=== PATIENT | female | born 1985 | race Caucasian/White ===

== ENCOUNTER → 2017-10-27 | Outpatient (CLI) | payer OTHER ==
[~2017-10-27] MED LIST: PREN0.01 PO
== END ==
LOC: HPND 08:20
PROVIDERS: ATTEND Obstetrics & Gynecology
DX: O09.811 Supervision of pregnancy resulting from assisted reproductive technology, first trimester (principal); O09.291 Supervision of pregnancy with other poor reproductive or obstetric history, first trimester; Z36.82 Encounter for antenatal screening for nuchal translucency
CPT/HCPCS: 36415; 76813

== ENCOUNTER → 2017-12-01 | Outpatient (CLI) | payer OTHER | LOC: HPND 08:13 | PROVIDERS: ATTEND Obstetrics & Gynecology | DX: O09.812 Supervision of pregnancy resulting from assisted reproductive technology, second trimester (principal); O36.5120 Maternal care for known or suspected placental insufficiency, second trimester, not applicable or unspecified | CPT/HCPCS: 76811; 76817 ==

== ENCOUNTER → 2017-12-29 | Outpatient (CLI) | payer OTHER | LOC: HPND 07:55 | PROVIDERS: ATTEND Obstetrics & Gynecology | DX: O36.5120 Maternal care for known or suspected placental insufficiency, second trimester, not applicable or unspecified (principal); O09.812 Supervision of pregnancy resulting from assisted reproductive technology, second trimester; O44.42 Low lying placenta NOS or without hemorrhage, second trimester | CPT/HCPCS: 76816; 76817; 76825; 76827; 93325 ==

== ENCOUNTER → 2018-01-28 | Outpatient (CLI) | payer OTHER | LOC: HPND 07:50 | PROVIDERS: ATTEND Obstetrics & Gynecology | DX: O09.812 Supervision of pregnancy resulting from assisted reproductive technology, second trimester (principal); O44.42 Low lying placenta NOS or without hemorrhage, second trimester; O36.5120 Maternal care for known or suspected placental insufficiency, second trimester, not applicable or unspecified | CPT/HCPCS: 76816; 76817 ==

== ENCOUNTER → 2018-02-28 | Outpatient (CLI) | payer OTHER | LOC: HPND 14:52 | PROVIDERS: ATTEND Obstetrics & Gynecology | DX: O35.8XX0 Maternal care for other (suspected) fetal abnormality and damage, not applicable or unspecified (principal); O36.5130 Maternal care for known or suspected placental insufficiency, third trimester, not applicable or unspecified; O09.813 Supervision of pregnancy resulting from assisted reproductive technology, third trimester | CPT/HCPCS: 76816 ==

== ENCOUNTER 2018-04-24 20:26 | Inpatient (IN) | payer OTHER ==
[~2018-04-24] VITALS: Ht 170.2 cm; Wt 98.0 kg
[2018-04-24] MEDS ORDERED: OXYTOCIN 30 UNITS/NS 500ML PREMIX IV PRN (21:30)
[2018-04-24] MEDS ORDERED: NS 1000 ML IV PRN (21:45)
[2018-04-24] MEDS ORDERED: ACETAMINOPHEN 325 MG TAB PO PRN (21:45)
[2018-04-24] MEDS ORDERED: MINERAL OIL 10 ML VIAL TOPICAL PRN (21:45)
[2018-04-24] MEDS ORDERED: ONDANSETRON HCL 4 MG/2 ML VIAL IV PUSH PRN (21:45)
[2018-04-24] MEDS ORDERED: CITRIC ACID-SODIUM CITRATE LIQ 30 ML UDC PO SCH (21:45)
[2018-04-24] MEDS ORDERED: LIDOCAINE HCL 1% 50 ML VIAL I-DERMAL PRN (21:45)
[2018-04-24] MEDS ORDERED: NS 500 ML BOLUS IV PRN (21:45)
[2018-04-24] MEDS ORDERED: LACTATED RINGER'S 1000 ML BOLUS IV PRN (21:45)
[2018-04-24] MEDS ORDERED: LIDOCAINE HCL 1% 50 ML VIAL INFIL PRN (21:45)
[2018-04-24] MEDS ORDERED: OXYTOCIN 30 UNITS 500ML PREMIX IV ONE (21:45)
[2018-04-24 22:01] LABS: AUTOMATED NEUTROPHIL # 7.1 TH/MM3 (1.8-7.7); BASOPHIL % 0.2 % (0.0-2.0); EOSINOPHIL % 0.2 % (0.0-4.0); HEMATOCRIT 41.3 % (35.0-46.0); HEMOGLOBIN 13.7 GM/DL (11.6-15.3); LYMPH % 15.3 % (9.0-44.0); LYMPHOCYTE # 1.4 TH/MM3 (1.0-4.8); MEAN CELL VOLUME 86.9 FL (80.0-100.0); MEAN CORPUSCULAR HEMOGLOBIN 28.9 PG (27.0-34.0); MEAN CORPUSCULAR HGB CONC 33.3 % (32.0-36.0); MEAN PLATELET VOLUME 9.6 FL (7.0-11.0); MONO % 5.8 % (0.0-8.0); MONOCYTE # 0.5 TH/MM3 (0-0.9); NEUT % 78.5 % (16.0-70.0); PLATELET COUNT 206 TH/MM3 (150-450); RED BLOOD COUNT 4.75 MIL/MM3 (4.00-5.30); RED CELL DISTRIBUTION WIDTH 14.8 % (11.6-17.2)
[2018-04-24] MEDS: LACTATED RINGER'S 1000 ML IV SCH (22:01)
[2018-04-24 22:04] LABS: BILIRUBIN, URINE NEG (NEG); BLOOD, URINE NEG (NEG); GLUCOSE,URINE NEG (NEG); KETONE, URINE 80 mg/dL (NEG); MUCUS URINE FEW /lpf (OCC); NITRITE,URINE NEG (NEG); PH, URINE 5.5 (5.0-8.5); SQUAMOUS EPITHELIAL CELL URINE 16 /hpf (0-5); URINE COLOR YELLOW (YELLW/STRAW); URINE LEUKOCYTE ESTERASE NEG (NEG)
[2018-04-24] MEDS ORDERED: VITATAB25 PO (22:34)
[2018-04-24] MEDS ORDERED: VALT500T PO (22:34)
[2018-04-24] MEDS: ZOLPIDEM TARTRATE 5 MG TAB PO PRN (23:31)
--- NOTE | 2018-04-25 08:43 | MH ---
cc: Jsoe Merida MD DATE OF ADMISSION: 04/24/2018 DATE OF ADMISSION: 04/24/2018 ADMITTING DIAGNOSES: 1. Term . 2. Low associated plasma protein A (NEREIDA-A) hormone. HISTORY OF PRESENT ILLNESS: The patient is a 32-year-old white female, para 0, with LMP of 07/23/2017, EDC of 04/29/2018. The occurred with in vitro. Initially, there was a twin and one vanished and one continued. Her first TM screen was notable for a low NEREIDA-A hormone and she was carefully monitored for growth and wellbeing. She was admitted for induction of labor, her term status and low NEREIDA-A hormone and risk of stillborn. PAST SURGICAL HISTORY: She had a laparoscopy in 2016, diagnosed with Stage I endometriosis. MEDICATIONS: Vitamins. ALLERGIES: NEOSPORIN. TRANSFUSIONS: None. SOCIAL HISTORY: She is , she is a teacher, elementary. Alcohol, tobacco and drugs are none. REVIEW OF SYSTEMS: Negative. PHYSICAL EXAMINATION: GENERAL: A well-nourished, well-developed white female. VITAL SIGNS: Stable. HEENT: Normal. CHEST: Clear. HEART: Regular rate. BREASTS: Symmetrical. ABDOMEN: Gravid. EFW of 3700 grams. PELVIC EXAM: Cervix is closed. EXTREMITIES: Show 2+ edema to the knees. ASSESSMENT: As above. PLAN: She is admitted for induction of labor. Should she have failure to progress or distress, would be delivered by . 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 MD FABIENNE Pang/SB , 08:25 AM , 08:41 AM
[2018-04-25] MEDS ORDERED: DINOPROSTONE 10 MG VAG INSERT VAGINAL ONE (18:00)
[2018-04-25] MEDS: LACTATED RINGER'S 1000 ML IV SCH ×2 (18:26→22:07)
[2018-04-25] MEDS: valACYclovir HCL 500 MG TAB PO SCH (18:26)
[2018-04-25] MEDS: ZOLPIDEM TARTRATE 5 MG TAB PO PRN (23:34)
[2018-04-26] MEDS: LACTATED RINGER'S 1000 ML IV SCH (05:45)
[2018-04-26] MEDS ORDERED: ceFAZolin 2 GM PREMIX 50 ML IV SCH (06:30)
[2018-04-26] MEDS ORDERED: CITRIC ACID-SODIUM CITRATE LIQ 30 ML UDC PO SCH (06:30)
[2018-04-26] MEDS ORDERED: LACTATED RINGER'S 1000 ML IV ONE (06:30)
[2018-04-26] MEDS ORDERED: LACTATED RINGER'S 1000 ML IV SCH (06:30)
[2018-04-26] MEDS ORDERED: ACETAMINOPHEN 1000 MG/100 ML 100 ML IV ONE (07:02)
[2018-04-26] MEDS ORDERED: MORPHINE SULFATE PF 5 MG/10 ML VIAL ONE (07:02)
[2018-04-26] MEDS ORDERED: DOCUSATE SODIUM 50 MG/SENNA 8.6 MG TAB PO PRN (07:15)
[2018-04-26] MEDS ORDERED: KETOROLAC TROMETHAMINE 60 MG/2 ML (IM) VIAL IM PRN (07:15)
[2018-04-26] MEDS ORDERED: OXYTOCIN 30 UNITS-500ML PREMIX 500 ML IV ONE (07:15)
[2018-04-26] MEDS ORDERED: ONDANSETRON ODT 4 MG TAB PO PRN (07:15)
[2018-04-26] MEDS ORDERED: oxyCODONE/ACETAMINOPHEN 5 MG/325 MG TAB PO PRN ×2 (07:15)
[2018-04-26] MEDS ORDERED: SIMETHICONE 80 MG CHEWABLE TAB PO PRN (07:15)
[2018-04-26] MEDS ORDERED: MEASLES, MUMPS, RUBELLA VACCINE 0.5 ML VIAL SQ ONE (07:15)
[2018-04-26 08:30] VITALS: BP 108/67
[2018-04-26] MEDS: valACYclovir HCL 500 MG TAB PO SCH (09:00)
[2018-04-26] MEDS ORDERED: EPIDURAL-NO SYSTEMIC NARCOTICS PRN (11:45)
[2018-04-26] MEDS ORDERED: EPIDURAL-DIPHENHYDRAMINE HCL 50 MG/ML VIAL IV PUSH PRN (11:45)
[2018-04-26] MEDS ORDERED: EPIDURAL-DO NOT ADMINISTER ANTICOAGULANTS PRN (11:45)
[2018-04-26] MEDS ORDERED: EPIDURAL-NALOXONE HCL 0.4 MG/ML AMP IV PUSH PRN (11:45)
[2018-04-26] MEDS ORDERED: EPIDURAL-DIPHENHYDRAMINE HCL 50 MG CAP PO PRN (11:45)
[2018-04-26] MEDS ORDERED: KETOROLAC TROMETHAMINE 30 MG/ML (IVP) VIAL IV PUSH ONE (12:00)
[2018-04-26] MEDS ORDERED: ONDANSETRON HCL 4 MG/2 ML VIAL IV ONE (12:00)
[2018-04-26] MEDS ORDERED: PHENYLEPH/NS 1000 MCG/10 ML SYR IV ONE (12:00)
[2018-04-26] MEDS ORDERED: LACTATED RINGER'S 1000 ML INJ 1,000 ML IV ONE (12:00)
[2018-04-26] MEDS ORDERED: OXYTOCIN 10 UNIT/ML AMP IV ONE (12:00)
[2018-04-26] MEDS ORDERED: LACTATED RINGER'S 1000 ML INJ 1,000 ML IV SCH (13:04)
[2018-04-26] MEDS ORDERED: KETOROLAC TROMETHAMINE 30 MG/ML (IVP) VIAL IV PUSH PRN (14:00)
[2018-04-26] MEDS: ACETAMINOPHEN 1000 MG/100 ML VIAL IV SCH ×2 (14:35→23:04)
[2018-04-26] MEDS ORDERED: OXYTOCIN 30 UNITS-500ML PREMIX 500 ML IV PRN (18:15)
[2018-04-26] MEDS ORDERED: ZOLPIDEM TARTRATE 5 MG TAB PO PRN (21:00)
--- NOTE | 2018-04-26 21:11 | MP ---
cc: Jose Merida MD DATE OF OPERATION: 04/26/2018 PREOPERATIVE DIAGNOSES: 1. at term. 2. Low NEREIDA-A hormone. 3. Failure to progress. POSTOPERATIVE DIAGNOSES: 1. at term 2. Low NEREIDA-A hormone 3. Failure to progress. 4. Delivered. PROCEDURE PERFORMED: Primary low transverse section. ANESTHESIA: Spinal. SURGEON: Jose Merida MD LIME KILN OPERATOR: Corry Morse. ESTIMATED BLOOD LOSS: About 500 mL FLUIDS: 800 mL of crystalloid. OBJECTIVE FINDINGS: Following induction of adequate spinal anesthesia, the patient was prepped and draped supine on the operating table in left lateral tilt position, usual sterile fashion with the bladder being drained by Dubon catheterization. The abdomen was opened through a Pfannenstiel incision using a knife cut down through the skin to the fascia. The fascia opened transversely, stripped from the muscles, rectus muscle split in the midline and the peritoneum opened sharply without incident. The bladder flap was taken down sharply and retracted inferiorly with the Carlos blade. The lower uterine segment was incised transversely with a knife and extended with blunt dissection. Membranes revealed clear fluid. Baby was in LOT position. The vacuum extractor applied to the occiput and used to gently lift the head through the abdominal wound. Mouth was suctioned, cord clamped and cut. The baby passed to waiting team, viable, vigorous female, Apgars were 9 and 9, weight 8 pounds 3 ounces. Cord blood sent for typing. Placenta removed and uterine cavity cleaned with laps. Uterus was exteriorized and closed in 2 layers running suture, first with a running locking stitch of 0 Vicryl, second running imbricating stitch of 0 Vicryl. The posterior inspection of uterus, tubes, ovaries was normal. Uterus was placed in abdominal cavity. Irrigation performed. No bleeding was evident and the bladder flap was closed with running stitch of 3-0 Vicryl. Laps and instruments were removed. Counts were correct. The anterior peritoneum closed with a running stitch of 2-0 Vicryl. The fascia closed with a running locking stitch of 0 Vicryl corner to midline and tied, subcutaneous closed with 3-0 Vicryl, the skin with running subcuticular 3-0 Monocryl. Sterile bandage applied. All counts were correct and the patient was awaken and taken to the recovery in good condition. MD FABIENNE Pang/ , 08:48 PM , 09:10 PM MTDKarmen
[2018-04-27] VITALS: TEMP 98.3
[2018-04-27 04:00] VITALS: BP 106/62; PULSE 72; RESP 16; TEMP 98.1; O2SAT 96
[2018-04-27 06:05] LABS: AUTOMATED NEUTROPHIL # 8.3 TH/MM3 (1.8-7.7); BASOPHIL % 0.3 % (0.0-2.0); EOSINOPHIL # 0.1 TH/MM3 (0-0.4); EOSINOPHIL % 0.6 % (0.0-4.0); HEMATOCRIT 37.2 % (35.0-46.0); HEMOGLOBIN 12.4 GM/DL (11.6-15.3); LYMPH % 12.9 % (9.0-44.0); LYMPHOCYTE # 1.3 TH/MM3 (1.0-4.8); MEAN CELL VOLUME 87.6 FL (80.0-100.0); MEAN CORPUSCULAR HEMOGLOBIN 29.2 PG (27.0-34.0); MEAN CORPUSCULAR HGB CONC 33.3 % (32.0-36.0); MEAN PLATELET VOLUME 9.3 FL (7.0-11.0); MONO % 6.4 % (0.0-8.0); MONOCYTE # 0.7 TH/MM3 (0-0.9); NEUT % 79.8 % (16.0-70.0); PLATELET COUNT 220 TH/MM3 (150-450); RED BLOOD COUNT 4.25 MIL/MM3 (4.00-5.30); RED CELL DISTRIBUTION WIDTH 15.5 % (11.6-17.2); WHITE BLOOD COUNT 10.4 TH/MM3 (4.0-11.0)
[2018-04-27 06:13] LABS: BICARBONATE 24.1 MEQ/L (21.0-32.0); CALCIUM 8.7 MG/DL (8.5-10.1); CREATININE 0.71 MG/DL (0.50-1.00)
[2018-04-27] MEDS: valACYclovir HCL 500 MG TAB PO SCH (08:06)
[2018-04-27] MEDS: ACETAMINOPHEN 1000 MG/100 ML VIAL IV SCH (08:07)
[2018-04-27] MEDS ORDERED: FUROSEMIDE 20 MG/2 ML VIAL IV PUSH ONE (08:45)
[2018-04-27] MEDS: IBUPROFEN 600 MG TAB PO PRN (18:49)
[2018-04-27 20:08] VITALS: BP 112/67; PULSE 72; RESP 18; TEMP 98.4
[2018-04-28] MEDS: IBUPROFEN 600 MG TAB PO PRN (03:58)
[2018-04-28] MEDS ORDERED: OXYC1TAB63 PO (08:12)
--- NOTE | 2018-04-28 08:12 | HHI.DCPOC ---
Discharge Care Plan Report Symptoms to Your Doctor -Temperature above 100.5 degrees -Redness, of incision or excessive or foul smelling drainage -Unusual pain or calf pain -Increased vaginal bleeding -Painful or difficulty urinating -Feelings of extreme sadness or anxiety after 2 weeks Goals to Promote Your Health * To prevent worsening of your condition and complications * To maintain your health at the optimal level Directions to Meet Your Goals Take your medications as prescribed Follow your dietary instruction Follow activity as directed Ensure plenty of rest for recovery Drink fluids for hydration Keep your appointments as scheduled Take your immunizations and boosters as scheduled If your symptoms worsen call your PCP, if no PCP go to Urgent Care Center or Emergency Room Smoking is Dangerous to Your Health. Avoid second hand smoke Call the 24-hour crisis hotline for domestic abuse at Jose Merida MD Apr 28, 2018 08:12
[2018-04-28] MEDS ORDERED: DIPHTH/TETANUS/ACEL PERTUSSIS (BOOSTER) 0.5 ML VIAL/PFS IM ONE (09:00)
--- NOTE | 2018-04-28 09:12 | MD ---
cc: Jose Merida MD DATE OF DISCHARGE: 04/28/2018 ADMITTING DIAGNOSES: 1. Term . 2. Low NEREIDA-A hormone. DISCHARGE DIAGNOSES: 1. Term . 2. Low NEREIDA-A hormone. 3. Failure to progress. 4. Delivered. HISTORY OF PRESENT ILLNESS/HOSPITAL COURSE: The patient is a 32-year-old white female, para 0, LMP of 07/23/2017, EDC of 04/29/2018. Her course was notable for by IVF. She had a low NEREIDA-A hormone on her first TM screen and was carefully followed for growth and well being. Due to the low NEREIDA-A hormone, she was recommended for delivery at term. She was admitted for induction of labor on the night of 04/24/2018. After 36 hours of alternating Pitocin and Cervidil, she had failed to dilate with delivery on the morning of 04/26/2018, a viable vigorous female. Apgars were 9 and 9, weight 8 pounds 3 ounces. The baby's name is Manuela and she is . did well. She was discharged home in stable condition on 04/28/2018. Her blood type was positive. She was advised NPV, light activity. No driving. Return to see me in 1 week. She is to call for abnormal pain, bleeding, temperature, signs of infection or depression. She will take her vitamins at home and iron pill at home. She was given prescription for Percocet 5 one to two p.o. every 4 hours p.r.n. pain, number 60. MD FABIENNE Pang/SINGH , 08:28 AM , 09:10 AM BETH
== END 2018-04-28 13:00 | disposition home or self-care (01) | DRG 765 ==
LOC: H2EA 20:26 → H2EB 20:33 → H2EA 04-25 11:35 → H1EA 04-26 09:34
PROVIDERS: ADMIT Obstetrics & Gynecology; ATTEND Obstetrics & Gynecology
PROC: 10D00Z1 Extraction of Products of Conception, Low, Open Approach (ICD-10-PCS; principal; 2018-04-26)
DX: O62.1 Secondary uterine inertia (principal); O98.52 Other viral diseases complicating childbirth; Z37.0 Single live birth; O26.893 Other specified pregnancy related conditions, third trimester; B00.9 Herpesviral infection, unspecified; Z3A.00 Weeks of gestation of pregnancy not specified; Z88.1 Allergy status to other antibiotic agents
CPT/HCPCS: 59025; 80048; 80307; 81001; 85025; 86900; 86901; G0481; J0131; J0690; J1885; J1940; J2274; J2370; J2405; J2590; J3010; J7120